=== PATIENT | male | born 1975 | race Caucasian/White ===

== ENCOUNTER 2019-01-08 06:06 | Inpatient (IN) | payer OTHER ==
[~2019-01-08] VITALS: Ht 190.5 cm; Wt 112.0 kg
[2019-01-08 06:10] VITALS: BP 139/85
[2019-01-08] MEDS ORDERED: OMEPRAZOLE40 MG PO (06:32)
[2019-01-08] MEDS ORDERED: COLESTIPOL HCL1 G1 PO ×2 (06:34→14:37)
[2019-01-08 06:46] LABS: ABSOLUTE NEUTROPHILS 6.4 thou/uL (1.4-8.2); BASOPHILS 0.8 % (0.0-2.0); EOSINOPHILS 1.8 % (0.0-3.0); HEMATOCRIT 43.5 % (42.0-52.0); HEMOGLOBIN 14.6 gm/dL (14.0-18.0); LYMPHOCYTES 18.7 % (24.0-44.0); MCH 29.4 pg (26.0-34.0); MCHC 33.7 g/dL (28.0-37.0); MCV 87.4 fL (80.0-100.0); PLATELET COUNT 328 thou/uL (150-400); POLYS 70.7 % (36.0-66.0); RBC 4.98 mil/uL (4.50-6.00)
[2019-01-08 06:49] LABS: CALCIUM 9.4 mg/dL (8.5-10.1); CREATININE 1.2 mg/dL (0.7-1.3); POTASSIUM 4.2 mmol/L (3.5-5.1)
[2019-01-08 06:56] LABS: DIRECT BILIRUBIN 0.2 mg/dL (<0.1-0.3); TOTAL BILIRUBIN 0.9 mg/dL (<0.1-1.0)
[2019-01-08 09:40] LABS: URINE BILIRUBIN NEGATIVE (Negative); URINE BLOOD NEGATIVE (Negative); URINE CLARITY CLEAR; URINE COLOR YELLOW; URINE GLUCOSE-RANDOM* NEGATIVE (Negative); URINE KETONES NEGATIVE (Negative); URINE LEUKOCYTES-REFLEX NEGATIVE (Negative); URINE NITRITE-REFLEX NEGATIVE (Negative); URINE PROTEIN (DIPSTICK) NEGATIVE (Negative); URINE SPECIFIC GRAVITY 1.025 (1.005-1.035); URINE UROBILINOGEN 0.2 E.U./dl (0.2-1.0)
[2019-01-08 10:15] VITALS: BP 117/74
[2019-01-08 10:24] VITALS: BP 129/76; BP 132/81
[2019-01-08 11:06] VITALS: BP 145/91
[2019-01-08] MEDS ORDERED: LOPERAMIDE 2 MG2 M1 PO (14:38)
[2019-01-08] MEDS ORDERED: VITAMIN D2000 UNIT PO (14:39)
[2019-01-08] MEDS ORDERED: VITAMIN B-12500 MCG PO (14:39)
[2019-01-08 19:52] VITALS: BP 127/79
[2019-01-08 20:14] VITALS: BP 127/79
[2019-01-09 06:08] LABS: ABSOLUTE NEUTROPHILS 9.1 thou/uL (1.4-8.2); BASOPHILS 0.3 % (0.0-2.0); EOSINOPHILS 0.2 % (0.0-3.0); HEMATOCRIT 38.2 % (42.0-52.0); HEMOGLOBIN 12.8 gm/dL (14.0-18.0); MCH 29.8 pg (26.0-34.0); MCHC 33.6 g/dL (28.0-37.0); MCV 88.7 fL (80.0-100.0); PLATELET COUNT 283 thou/uL (150-400); POLYS 78.5 % (36.0-66.0); RBC 4.31 mil/uL (4.50-6.00); RDW 13.6 % (10.5-14.5); WBC 11.6 thou/uL (4.0-11.0)
[2019-01-09 06:15] LABS: CALCIUM 8.6 mg/dL (8.5-10.1); CREATININE 1.1 mg/dL (0.7-1.3); POTASSIUM 4.1 mmol/L (3.5-5.1)
[2019-01-09 08:07] VITALS: BP 131/77
[2019-01-09 19:10] VITALS: BP 116/81
[2019-01-10 04:30] VITALS: BP 121/67
[2019-01-10 07:05] VITALS: BP 132/86
[2019-01-10 08:22] LABS: HEMATOCRIT 38.3 % (42.0-52.0); HEMOGLOBIN 12.8 gm/dL (14.0-18.0); MCH 29.6 pg (26.0-34.0); MCHC 33.4 g/dL (28.0-37.0); MCV 88.5 fL (80.0-100.0); RBC 4.32 mil/uL (4.50-6.00); RDW 14.2 % (10.5-14.5); WBC 9.8 thou/uL (4.0-11.0)
[2019-01-10 08:32] LABS: CALCIUM 9.4 mg/dL (8.5-10.1); CREATININE 1.3 mg/dL (0.7-1.3); POTASSIUM 3.8 mmol/L (3.5-5.1)
[2019-01-10 16:06] VITALS: BP 139/79
[2019-01-10 17:33] VITALS: BP 113/59
[2019-01-10 19:10] VITALS: BP 136/83
[2019-01-11 03:30] VITALS: BP 131/75
[2019-01-11 07:43] VITALS: BP 145/82
[2019-01-11] MEDS ORDERED: PERCOCET PO (14:06)
[2019-01-11] MEDS ORDERED: PREDNISONE 20 M20 MG PO ×2 (14:06→14:18)
[2019-01-11 14:36] VITALS: BP 145/82
--- NOTE | 2019-01-13 07:38 | P ---
[facility] [place] [address] PROCEDURE REPORT Name: GORDOBHARATH Kindra Room #: 417-I [facility] IN ..#: [id number] Admission: 01/08/19 Attend Phys: Parmjit Wilson MD Discharge: 01/11/19 Date of : 73 Report #: [id number] THIS REPORT FOR: //name// CC: [facility] physician/PCP PARMJIT Myers DATE OF SERVICE: 01/11/2019 PROCEDURE: Colonoscopy with biopsy. INDICATION FOR PROCEDURE: Evaluate narrowing of the new ileocolonic anastomosis and narrowing of the sigmoid colon. The patient has a history of Crohn's disease. He is developing early obstructive symptoms. DESCRIPTION OF PROCEDURE: Informed consent for this procedure was obtained prior to the administration of any medication. The risks of the procedure, which include but are not limited to the following: bleeding, perforation, infection, complications of sedation and the possibility I could miss something were explained to the patient and he has indicated his consent by signing. Anesthesia kindly provided propofol for deep sedation for this procedure: With the patient in the left lateral decubitus position, a digital rectal exam was performed and was normal. Then, the Olympus colonoscope was introduced through the anal sphincter and advanced under direct visualization to the neoterminal ileum and up into the ileum for approximately 10 cm. Findings are noted on withdrawal of the scope. The visualized portion of the distal neoileum demonstrates several ulcerations that are consistent with Crohn's disease. Biopsies were obtained x 2 from the distal ileum and the anastomosis for histopathology. The anastomosis itself is ulcerated severely. The remaining colonic mucosa, which includes the transverse colon and splenic flexure and descending colon appeared normal. The sigmoid colon loses its vascular pattern and appears somewhat edematous, but there are no ulcerations in this area. Rectum likewise is edematous with loss of vascular pattern. Retroflex view did not reveal any significant abnormalities. The scope was withdrawn slowly through the anal canal. Biopsies had been obtained x 2 from the sigmoid colon as well to evaluate for etiologies of this change in vascular pattern. The patient went to the recovery room in stable condition. He tolerated the procedure well. IMPRESSION: 1. Severely ulcerated ileocolonic anastomosis. 2. Ulcerated distal neoterminal ileum. 3. Loss of vascular pattern in the rectosigmoid region. No ulceration seen, [address] [address] PROCEDURE REPORT Name: BHARATH CARO Room #: 417-I [facility] IN [facility].#: [id number] Admission: 01/08/19 Attend Phys: Parmjit Wilson MD Discharge: 01/11/19 Date of : 73 Report #: [id number] however, there is some erythema. Biopsies x 2 were taken in this area for histopathology. RECOMMENDATIONS: As the distal terminal ileum is not obstructed, the scope passes through it easily. I think we can start him on a soft diet. His appetite has become good today. I think he can be discharged home today. [facility] and I think he needs to make that appointment for sure. He has not been able to get the Entyvio infusions for the last 4 months because of insurance issues I am told. We will await the biopsy results. He is welcome to follow up with us in the office, Dr. Easley specifically in approximately 4 weeks or sooner if need be or he can follow up with Dr. Myers who has been following him previously. Thank you very much once again for allowing me to participate in his care. <ELECTRONICALLY SIGNED> By: Erika Emerson DO 01/13/19 0738 1134 0034 Erika Emerson DO /nt
== END 2019-01-11 14:54 | disposition home or self-care (01) | DRG 385 ==
LOC: ER 06:06 → 4E 10:03 → EROBS 10:03 → 4E 10:33
PROVIDERS: Emergency Medicine; Nurse Practitioner; ADMIT Hospitalist
PROC: 0DBN8ZX Excision of Sigmoid Colon, Via Natural or Artificial Opening Endoscopic, Diagnostic (ICD-10-PCS; principal; 2019-01-11)
PROC: 0DBB8ZX Excision of Ileum, Via Natural or Artificial Opening Endoscopic, Diagnostic (ICD-10-PCS; principal; 2019-01-11)
DX: K50.90 Crohn's disease, unspecified, without complications (principal); K85.90 Acute pancreatitis without necrosis or infection, unspecified; K63.89 Other specified diseases of intestine; K27.9 Peptic ulcer, site unspecified, unspecified as acute or chronic, without hemorrhage or perforation; Z79.899 Other long term (current) drug therapy
CPT/HCPCS: 10084; 62110; 62900; 70005

== ENCOUNTER 2019-01-21 12:33 | Inpatient (IN) | payer OTHER ==
[~2019-01-21] VITALS: Ht 190.5 cm; Wt 111.1 kg
--- NOTE | ~2019-01-21 | HC ---
[facility] [place] [address] CONSULTATION Name: BHARATH CARO Kindra Room #: 460-P [facility] IN .R.#: [id number] Admission: 01/21/19 Attend Phys: Alondra Vargas MD Discharge: Date of : 73 Report #: [id number] THIS REPORT FOR: //name// CC: [facility] physician/PCP Alondra Vargas DATE OF SERVICE: 01/21/2019 I am seeing this patient at the request of Dr. Vargas. CHIEF COMPLAINT: Abdominal pain. HISTORY OF PRESENT ILLNESS: This is a 43-year-old man with a history of Crohn's disease. He has had a recent admission approximately 2 weeks ago for Crohn's flare. He was discharged at that time after being treated with IV steroids. He has a routine followup with Gastroenterology. However, in the past 2 days, he has had abdominal pain that is sharp, stabbing, located in the epigastrium. CT scan in the Emergency Department demonstrates findings consistent with mild enteritis of the proximal jejunum. PAST MEDICAL HISTORY: Significant for Crohn's disease. PAST SURGICAL HISTORY: He has had 2 small bowel resections. SOCIAL HISTORY: No tobacco use. Occasional alcohol use. ALLERGIES: NKDA. MEDICATIONS: He is on prednisone and also Crohn's medication. REVIEW OF SYSTEMS: A 12-point review of systems negative except for listed above in HPI. PHYSICAL EXAMINATION: VITAL SIGNS: Temperature 37.0, pulse 74, blood pressure 122/73. GENERAL: He is awake, alert, in no acute distress. HEENT: Extraocular movements intact. Sclerae without icterus. NECK: Supple. CARDIOVASCULAR: Regular rate and rhythm. CHEST: Fair movement bilaterally. ABDOMEN: Soft, nondistended, minimally tender in the epigastrium. No organomegaly. EXTREMITIES: Without clubbing, cyanosis or edema. NEUROLOGIC: Grossly intact. SKIN: Without rash or jaundice. [facility] [address] [place] [address] CONSULTATION Name: BHARATH CARO Room #: 460-P [facility] IN [facility]#: [id number] Admission: 01/21/19 Attend Phys: Alondra Vargas MD Discharge: Date of : 73 Report #: [id number] LABORATORY DATA: White blood cell count is 16.6. Lactic acid is 3.3. ASSESSMENT AND PLAN: A 43-year-old man with Crohn's disease and enteritis. He does not have an acute abdomen at this time. Recommend treatment with IV antibiotics and steroids as needed. He does have a past history of what sounds the biliary dyskinesia and may benefit from having this examined further after his Crohn's flare has subsided. Thank you for asking me to take part in the care of this patient. We will follow along with you. By: [id number] Yong Wiley MD /nt
[~2019-01-21 12:33] MED LIST: COLESTIPOL HCL1 G1 PO; LOPERAMIDE 2 MG2 M1 PO; OMEPRAZOLE40 MG PO; PERCOCET PO; PREDNISONE 20 M20 MG PO; VITAMIN B-12500 MCG PO; VITAMIN D2000 UNIT PO
[2019-01-21 12:52] VITALS: BP 146/92
[2019-01-21 13:39] LABS: URINE BILIRUBIN NEGATIVE (Negative); URINE BLOOD NEGATIVE (Negative); URINE CLARITY CLEAR; URINE COLOR YELLOW; URINE GLUCOSE-RANDOM* NEGATIVE (Negative); URINE KETONES NEGATIVE (Negative); URINE LEUKOCYTES-REFLEX NEGATIVE (Negative); URINE NITRITE-REFLEX NEGATIVE (Negative); URINE PROTEIN (DIPSTICK) NEGATIVE (Negative); URINE UROBILINOGEN 0.2 E.U./dl (0.2-1.0)
[2019-01-21 13:42] LABS: ABSOLUTE NEUTROPHILS 14.2 thou/uL (1.4-8.2); BASOPHILS 0.5 % (0.0-2.0); EOSINOPHILS 0.3 % (0.0-3.0); HEMATOCRIT 45.1 % (42.0-52.0); HEMOGLOBIN 15.2 gm/dL (14.0-18.0); MCH 29.6 pg (26.0-34.0); MCHC 33.7 g/dL (28.0-37.0); MCV 87.8 fL (80.0-100.0); MONOCYTES 3.5 % (1.0-8.0); PLATELET COUNT 291 thou/uL (150-400); POLYS 85.7 % (36.0-66.0); RBC 5.14 mil/uL (4.50-6.00); RDW 14.2 % (10.5-14.5); WBC 16.6 thou/uL (4.0-11.0)
[2019-01-21 13:50] LABS: CALCIUM 9.6 mg/dL (8.5-10.1); CREATININE 1.3 mg/dL (0.7-1.3); POTASSIUM 4.2 mmol/L (3.5-5.1)
[2019-01-21 13:56] LABS: ALBUMIN 3.8 g/dL (3.4-5.0); TOTAL BILIRUBIN 0.6 mg/dL (<0.1-1.0); TOTAL PROTEIN 7.8 g/dL (6.4-8.2)
[2019-01-21 17:39] VITALS: BP 122/73
[2019-01-21 19:29] VITALS: BP 123/79
[2019-01-21 19:39] VITALS: BP 129/69
[2019-01-21 20:29] VITALS: BP 133/83
[2019-01-22 03:24] VITALS: BP 122/74
--- NOTE | 2019-01-22 05:00 | NUR ---
PATIENT ALERT AND ORIENTED X4. UP ADLIB IN ROOM. NO NAUSEA OR VOMITING DURING THE NIGHT. MEDICATED FOR PAIN X2. RESTING QUIETLY. WILL MONITOR.
[2019-01-22 05:41] LABS: MCHC 32.7 g/dL (28.0-37.0); MCV 88.7 fL (80.0-100.0); RBC 4.84 mil/uL (4.50-6.00); RDW 14.4 % (10.5-14.5); WBC 14.9 thou/uL (4.0-11.0)
[2019-01-22 05:52] LABS: CALCIUM 8.5 mg/dL (8.5-10.1); CREATININE 1.2 mg/dL (0.7-1.3)
[2019-01-22 08:00] VITALS: BP 125/85
--- NOTE | 2019-01-22 12:39 | NUR ---
PT ADMITTED RELATED TO ABDOMINAL PAIN AND INCREASED LATIC. CM REVIEWED CHART AND SPOKE WITH CARE TEAM. PT HAD BEEN HERE EARLIER THIS MONTH HAVING DISHCARGED 01/11/19 WITH NO NEEDS. CM MET WIHT PT AT BEDSIDE THIS DAY. PT IS A&O X4. CM ROLE INTRODUCED. PT INDICATED HE LIVES IN A DUPLEX WIHT HIS SIG OTHER WITH 6 STEPS TO ENTER AND 7 STEPS INSIDE. 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 PT INIDCATED NO HH OR DME HX. PT INDICATED NO PCP. PT INDICATED HE PLANS TO DC HOME ONCE MEDICALLY STABLE. CM TO FOLLOW INDICATED WITH DC PLANNING.
--- NOTE | 2019-01-22 14:45 | NUR ---
ASSUMED CARE AT 0700, SHIFT ASSESSMENT DONE,
--- NOTE | 2019-01-22 14:46 | NUR ---
ASSUMED CARE AT 0700, SHIFT ASSESSMENT DONE, PT WANTED TO BE NPO FOR A POSSIBLE PIPIDA SCAN. GI SAW THE PT TODAY AND ORDERED PIPIDA SCAN. BUT PT HAD ALREADY GOTTEN MORPHINE EARLY THIS AM, SO PIPIDA SCAN CANNOT BE DONE TODAY. SCHEDULED FOR PIPIDA SCAN TOMORROW. 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 WILL CONTINUE TO ASSESS AND ASSIST WITH ADLs NEEDED.
[2019-01-22 15:00] VITALS: BP 130/78
[2019-01-22 20:17] VITALS: BP 129/74
--- NOTE | 2019-01-23 05:35 | NUR ---
Pt. rested quietly at intervals during the night when checked on during frequent rounds. He does c/o abdominal pain, but understands no pain meds per due to tests this am. He has been up ad niharika in his room. No c/o nausea.
[2019-01-23 05:48] LABS: HEMATOCRIT 40.8 % (42.0-52.0); HEMOGLOBIN 13.6 gm/dL (14.0-18.0); MCH 29.6 pg (26.0-34.0); MCHC 33.3 g/dL (28.0-37.0); MCV 88.8 fL (80.0-100.0); RBC 4.59 mil/uL (4.50-6.00); RDW 14.4 % (10.5-14.5); WBC 12.1 thou/uL (4.0-11.0)
[2019-01-23 06:02] LABS: POTASSIUM 4.2 mmol/L (3.5-5.1)
[2019-01-23 07:26] VITALS: BP 117/59
[2019-01-23 12:45] VITALS: BP 133/70
[2019-01-23 19:55] VITALS: BP 124/72
--- NOTE | 2019-01-23 20:14 | NUR ---
Assumed pt care this am, pt was NPO and taken down for the pipida scan and egd. VS stable , though pain was noted managed with medications. Pt is up at niharika and wanting to go home. Seen by Dr. Snow, awaiting pipida results, pain is to be manageable prior to dc, informed the pt. Diet is well tolerated though caused pt pain when he ate. POC followed, no signs distress have been noted.
[2019-01-24 05:55] LABS: HEMATOCRIT 42.7 % (42.0-52.0); HEMOGLOBIN 14.2 gm/dL (14.0-18.0); MCH 29.6 pg (26.0-34.0); MCHC 33.2 g/dL (28.0-37.0); MCV 89.3 fL (80.0-100.0); RBC 4.78 mil/uL (4.50-6.00); WBC 10.1 thou/uL (4.0-11.0)
[2019-01-24 07:38] VITALS: BP 123/78
--- NOTE | 2019-01-24 08:27 | NUR ---
PROGRESS PT A/O X4. UP AD GURINDER AMBULATING IN HALLWAY. TOLERATING DIET VOIDING QS NO LOOSE STOOLS. DIFFICULTY GETTING PAIN UNDER CONTROL TAKING 5 MG HYDROCODONE AND 2 MG MORPHINE WITH LITTLE EFFECT. ORDER FOR A ONE TIME DOSE OF TORADOL OBTAINED GIVEN WITH GOOD EFECT PT RATED HIS PAIN A ZERO AFTER. AWAITING RESULTS OF PIPPIDA SCAN DC PLANNING CONTINUES
[2019-01-24 14:00] VITALS: BP 120/70
--- NOTE | 2019-01-24 14:06 | PATH ---
[facility] [place] [address] [address] PATHOLOGY RPT PROCEDURE Name: BHARATH CARO Kindra Room #: 460-P [facility] IN M.R.#: [id number] Admission: 01/21/19 Date of : 73 Discharge: Report #: [id number] Path Case #: [id number] [facility] Accession Number: [id number] . 01 Material submitted: . stomach - RANDOM GASTRIC BX . 01 Clinical history: . Pre-OP DX: Abdominal pain, Hx Crohn's Post-OP DX: Gastritis Rule out H. pylori . 02 Diagnosis: Stomach, random biopsies: - Chronic superficial gastritis, mild. - No evidence of Helicobacter pylori on immunoperoxidase stain. (SKM:crystal; 01/24/2019) QMS/01/24/2019 . 02 Electronically signed: . Agustin Nelson MD, Pathologist NPI- [id number] . 01 Gross description: . Received in formalin labeled "Caro, Bharath, random gastric BX," are 4 segments of roca soft tissue measuring 1.6 x 0.8 x 0.3 cm in aggregate dimensions and ranging from 0.4 to 0.6 cm in maximum dimension. The specimen is submitted entirely in cassette A1. (TSD; 01/23/2019) TOB/TOB . 02 Pathologist provided ICD-10: K29.30 . 02 CPT . 065177, G86222 Specimen Comment: A courtesy copy of this report has been sent to Specimen Comment: [phone], . Specimen Comment: Report sent to / DR PALMER Performed at: [address], [place] [id number] MD Lg Rivas MD Phone: [phone] Performed at: [address] [id number] MD Kacie Galarza MD Phone: [phone]
--- NOTE | 2019-01-24 15:12 | NUR ---
Assumed pt care this am, vs stable, pt is up at niharika and steady on his gaite pt ambulated the halls. Pt complained of pain that has not resolved since last night, pt mentioned toradola had worked but no for long. Informed Dr. Snow, jyotsna plascencia. Roland being monitored for pain management. POC followed.
--- NOTE | 2019-01-24 15:39 | NUR ---
CARE TEAM ARE INDICATING POSSIBLE LAP TRACIE. IT IS ANTICPATED THAT HE WILL LIKELY HAVE NO NEEDS UPON DC.
[2019-01-24 19:44] VITALS: BP 119/72
[2019-01-25 07:44] VITALS: BP 111/75
--- NOTE | 2019-01-25 08:25 | NUR ---
PROGRESS PT A/O X4 UP AD GURINDER. VSS, STEADY GAIT NOT A FALL RISK AMBULATING IN HALLS. LUNGS CLEAR BS POSITIVE, VOIDING QS. PAIN INCREASES WITH EATING PT HAD A PIPPIDA SCAN AND SCHEDULED FOR A LAP TRACIE THIS AFTERNOON. PAIN CONTROLLED WITH TORADOL, HYDROCODONE USING SPARINGLY.
[2019-01-25 17:07] VITALS: BP 128/92
--- NOTE | 2019-01-25 19:40 | NUR ---
Assumed care of pt at 0700. Pt alert and oriented x4. Pt had laparoscopic cholecystectomy today. 5 lap sites clean and intact. Pain controlled with prn pain meds. Started on CL diet. Call light withinr reach. Report given to hui LUND.
[2019-01-25 20:18] VITALS: BP 138/86
--- NOTE | 2019-01-26 02:27 | NUR ---
ASSUMED CARE AROUND 1899. AXOX4. S/P LAP TRACIE. LAP SITE X 5 CDI. PERSISTENT PAIN. TX PER MD ORDER. PT VOIDED TO TOILET. TOLERATED CLEAR DIET VERY WELL. NO S/S ACUTE DISTRESS NOTED OR REPORTED AT THIS TIME. WILL CONT TO MONITOR FOR ANY CHANGES IN CONDITION.
[2019-01-26] MEDS ORDERED: TRAMADOL 50 MG50 MG PO (08:26)
[2019-01-26 08:39] VITALS: BP 127/83
[2019-01-26 12:02] VITALS: BP 127/83
--- NOTE | 2019-01-26 12:32 | NUR ---
PATIENT DOING WELL THIS AM. DENIED NAUSEA. TOLERATED REGULAR DIET FOR BREAKFAST. PAIN WELL CONTROLLED. VOIDING WITHOUT DIFFICULTY AND IN ADEQUATE AMOUNTS. HAD A BOWELL MOVEMENT. UP INDEPENDENTLY. TOOK A SHOWER. PATIENT STATED READY TO BE DISCHARGED. DISCHARGE INSTRUCTIONS GIVEN AND DISMISSED IN STABLE CONDITION.
== END 2019-01-26 12:36 | disposition home or self-care (01) | DRG 357 ==
LOC: ER 12:33 → EROBS 16:28 → 4W 16:28 → ENTRNSPT 01-26 12:22 → EDTRNSPTSTS 01-26 12:23 → 4W 01-26 12:36
PROVIDERS: Hospitalist; Nurse Practitioner; Physician Assistant; ADMIT Internal Medicine
PROC: 0DB68ZX Excision of Stomach, Via Natural or Artificial Opening Endoscopic, Diagnostic (ICD-10-PCS; principal; 2019-01-23)
PROC: BF121ZZ Fluoroscopy of Gallbladder using Low Osmolar Contrast (ICD-10-PCS; 2019-01-25)
PROC: 0FT44ZZ Resection of Gallbladder, Percutaneous Endoscopic Approach (ICD-10-PCS; 2019-01-25)
DX: K50.90 Crohn's disease, unspecified, without complications (principal); E87.2 Acidosis; K80.20 Calculus of gallbladder without cholecystitis without obstruction; K82.8 Other specified diseases of gallbladder; K52.9 Noninfective gastroenteritis and colitis, unspecified; K29.70 Gastritis, unspecified, without bleeding; K80.50 Calculus of bile duct without cholangitis or cholecystitis without obstruction; Z87.11 Personal history of peptic ulcer disease; Z79.899 Other long term (current) drug therapy
CPT/HCPCS: 10040; 50010; 50249; 50411; 50445; 50555; 50558; 51474; 51489; 52265; 52266; 53307; 53310; 53312; 54022; 54118; 55245; 56462; 56525; 56526; 56674; 57108; 62110; 62900; 70005

== ENCOUNTER 2019-03-28 14:35 | Emergency (ER) | payer OTHER ==
[~2019-03-28] VITALS: Ht 190.5 cm; Wt 106.6 kg
[~2019-03-28 14:35] MED LIST changes: +TRAMADOL 50 MG50 MG PO
[2019-03-28] MEDS ORDERED: NORFLEX100 MG PO (15:41)
[2019-03-28] MEDS ORDERED: NAPROSYN500 MG PO (15:41)
[2019-03-28 16:03] VITALS: BP 139/84
== END 2019-03-28 16:04 | disposition home or self-care (01) ==
LOC: ER 14:35
DX: S13.4XXA Sprain of ligaments of cervical spine, initial encounter (principal); S09.8XXA Other specified injuries of head, initial encounter; K50.90 Crohn's disease, unspecified, without complications; W14.XXXA Fall from tree, initial encounter; Y93.89 Activity, other specified; Y92.89 Other specified places as the place of occurrence of the external cause; Y99.8 Other external cause status

== ENCOUNTER 2019-06-20 01:14 | Emergency (ER) | payer OTHER ==
[~2019-06-20] VITALS: Ht 190.5 cm; Wt 108.9 kg
[~2019-06-20 01:14] MED LIST changes: +NAPROSYN500 MG PO; +NORFLEX100 MG PO
[2019-06-20] MEDS ORDERED: ENTYVIO300 MG (01:40)
[2019-06-20 01:46] LABS: ABSOLUTE NEUTROPHILS 5.7 thou/uL (1.4-8.2); BASOPHILS 1.1 % (0.0-2.0); EOSINOPHILS 2.5 % (0.0-3.0); HEMATOCRIT 44.3 % (42.0-52.0); HEMOGLOBIN 14.8 gm/dL (14.0-18.0); MCH 28.9 pg (26.0-34.0); MCHC 33.5 g/dL (28.0-37.0); MCV 86.3 fL (80.0-100.0); MONOCYTES 8.1 % (1.0-8.0); PLATELET COUNT 344 thou/uL (150-400); POLYS 62.3 % (36.0-66.0); RBC 5.14 mil/uL (4.50-6.00); RDW 12.8 % (10.5-14.5); WBC 9.1 thou/uL (4.0-11.0)
[2019-06-20 01:52] LABS: CALCIUM 8.9 mg/dL (8.5-10.1); CREATININE 1.6 mg/dL (0.7-1.3); POTASSIUM 4.1 mmol/L (3.5-5.1)
[2019-06-20 01:58] LABS: ALBUMIN 3.7 g/dL (3.4-5.0); TOTAL BILIRUBIN 0.5 mg/dL (<0.1-1.0); TOTAL PROTEIN 7.8 g/dL (6.4-8.2)
[2019-06-20 04:03] LABS: URINE BILIRUBIN NEGATIVE (Negative); URINE BLOOD NEGATIVE (Negative); URINE CLARITY CLEAR; URINE COLOR YELLOW; URINE GLUCOSE-RANDOM* NEGATIVE (Negative); URINE KETONES NEGATIVE (Negative); URINE LEUKOCYTES-REFLEX NEGATIVE (Negative); URINE NITRITE-REFLEX NEGATIVE (Negative); URINE PROTEIN (DIPSTICK) NEGATIVE (Negative); URINE SPECIFIC GRAVITY >= 1.030 (1.005-1.035); URINE UROBILINOGEN 0.2 E.U./dl (0.2-1.0)
[2019-06-20] MEDS ORDERED: PREDNISONE 20 M20 MG PO (04:08)
[2019-06-20] MEDS ORDERED: ZOFRAN ODT4 MG PO (04:14)
[2019-06-20] MEDS ORDERED: NORCO 5-325 TA1 EAC1 PO (04:14)
[2019-06-20 04:28] VITALS: BP 112/66
== END 2019-06-20 04:30 | disposition home or self-care (01) ==
LOC: ER 01:14
PROVIDERS: Emergency Medicine
DX: K50.90 Crohn's disease, unspecified, without complications (principal); R11.2 Nausea with vomiting, unspecified; Z90.49 Acquired absence of other specified parts of digestive tract

== ENCOUNTER 2019-08-14 04:13 | Emergency (ER) | payer OTHER ==
[~2019-08-14] VITALS: Ht 190.5 cm; Wt 111.1 kg
[~2019-08-14 04:13] MED LIST changes: +ENTYVIO300 MG; +NORCO 5-325 TA1 EAC1 PO; +ZOFRAN ODT4 MG PO
[2019-08-14 05:21] LABS: ABSOLUTE NEUTROPHILS 5.9 thou/uL (1.4-8.2); BASOPHILS 0.8 % (0.0-2.0); EOSINOPHILS 2.7 % (0.0-3.0); HEMATOCRIT 43.1 % (42.0-52.0); HEMOGLOBIN 14.3 gm/dL (14.0-18.0); LYMPHOCYTES 16.9 % (24.0-44.0); MCH 29.1 pg (26.0-34.0); MCHC 33.2 g/dL (28.0-37.0); MCV 87.8 fL (80.0-100.0); MONOCYTES 9.4 % (1.0-8.0); PLATELET COUNT 327 thou/uL (150-400); POLYS 70.2 % (36.0-66.0); RBC 4.91 mil/uL (4.50-6.00); RDW 13.9 % (10.5-14.5); WBC 8.5 thou/uL (4.0-11.0)
[2019-08-14 05:30] LABS: ANION GAP 8 mmol/L (7-16); BUN 14 mg/dL (7-18); CHLORIDE 103 mmol/L (98-107); CO2 27 mmol/L (21-32); CREATININE 1.2 mg/dL (0.7-1.3); GLUCOSE 99 mg/dL (74-106); POTASSIUM 4.3 mmol/L (3.5-5.1); SODIUM 138 mmol/L (136-145)
[2019-08-14 05:31] LABS: TROPONIN-I <0.06 ng/mL (<0.06)
[2019-08-14] MEDS ORDERED: FLONASE 0.05%50 MCG NARES (06:13)
[2019-08-14 06:18] VITALS: BP 122/77
--- NOTE | 2019-08-14 14:28 | EKG ---
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: NO : 1975 Requested By: Refugio Lipscomb Order Number: [id number] MD: Bradley Orellana Measurements Intervals [place] Rate: 60 P: 39 VA: 152 QRS: 40 QRSD: 105 T: 10 QT: 421 QTc: 421 Interpretive Statements Sinus rhythm Abnormal R-wave progression, early transition No previous ECG available for comparison Electronically Signed On 08-14-2019 14:27:38 CDT by Bradley Orellana [email or web address] <ELECTRONICALLY SIGNED> By: Bradley Orellana MD, [facility] 08/14/19 1427 050 1 Bradley Orellana MD, FAC /EPI
== END 2019-08-14 06:19 | disposition still patient (30) ==
LOC: ER 04:13
PROVIDERS: Emergency Medicine
DX: R09.81 Nasal congestion (principal); R05 Cough; R07.89 Other chest pain; R50.9 Fever, unspecified; J02.9 Acute pharyngitis, unspecified; Z79.899 Other long term (current) drug therapy

== ENCOUNTER 2019-10-27 09:24 | Emergency (ER) | payer OTHER ==
[~2019-10-27] VITALS: Ht 190.5 cm; Wt 111.1 kg
[~2019-10-27 09:24] MED LIST changes: +FLONASE 0.05%50 MCG NARES
[2019-10-27] MEDS ORDERED: NORCO 7.5-3251 EACH PO (09:58)
[2019-10-27] MEDS ORDERED: IBUPROFEN 800800 M1 PO (09:58)
[2019-10-27] MEDS ORDERED: NORFLEX100 MG PO (09:58)
[2019-10-27] MEDS ORDERED: MEDROLDOSEPACK PO (09:58)
[2019-10-27] MEDS ORDERED: SENNA-DOCUSATE1 EAC1 PO (09:58)
[2019-10-27 10:05] VITALS: BP 145/89
== END 2019-10-27 10:05 | disposition home or self-care (01) ==
LOC: ER 09:24
DX: M54.42 Lumbago with sciatica, left side (principal); Z79.899 Other long term (current) drug therapy

== ENCOUNTER → 2019-11-01 | Emergency (ER) | payer OTHER ==
[~2019-11-01] VITALS: Ht 195.6 cm; Wt 111.1 kg
[~2019-11-01] MED LIST changes: +CYCLOBENZAPRINE5 MG PO; +IBUPROFEN 800800 M1 PO; +MEDROLDOSEPACK PO; +NORCO 10-325 T1 EACH PO; +NORCO 7.5-3251 EACH PO; +SENNA-DOCUSATE1 EAC1 PO
[2019-11-01 17:19] VITALS: BP 137/89
== END ==
LOC: ER 14:18
DX: M48.061 Spinal stenosis, lumbar region without neurogenic claudication (principal); Z79.899 Other long term (current) drug therapy

== ENCOUNTER 2020-01-07 12:26 | Emergency (ER) | payer OTHER ==
[~2020-01-07] VITALS: Ht 190.5 cm; Wt 111.1 kg
[2020-01-07] MEDS ORDERED: NORFLEX100 MG PO (13:52)
[2020-01-07] MEDS ORDERED: NAPROSYN500 MG PO (13:52)
[2020-01-07 14:03] VITALS: BP 134/90
== END 2020-01-07 14:05 | disposition home or self-care (01) ==
LOC: ER 12:26
DX: S39.012A Strain of muscle, fascia and tendon of lower back, initial encounter (principal); M54.42 Lumbago with sciatica, left side; Z79.899 Other long term (current) drug therapy; X50.0XXA Overexertion from strenuous movement or load, initial encounter; Y93.89 Activity, other specified; Y92.89 Other specified places as the place of occurrence of the external cause; Y99.8 Other external cause status